=== PATIENT | female | born 1950 | race Caucasian/White ===

== ENCOUNTER 2022-09-27 15:58 | Emergency (ER) | payer OTHER, BC ==
[2022-09-27 16:05] VITALS: BP 109/68; PULSE 98; RESP 18; TEMP 98; BMI 28.3
== END 2022-09-27 18:23 | disposition home or self-care (01) ==
LOC: JER 15:58
DX: S09.90XA Unspecified injury of head, initial encounter (principal); Y04.0XXA Assault by unarmed brawl or fight, initial encounter; W50.0XXA Accidental hit or strike by another person, initial encounter
CPT/HCPCS: 70450-TC; 70486-TC; 72125-TC; 99284-25